=== PATIENT | female | born 1980 | race Caucasian/White ===

== ENCOUNTER 2019-12-23 15:56 | Emergency (ER) | payer OTHER ==
[~2019-12-23] VITALS: Ht 172.7 cm; Wt 65.0 kg
--- NOTE | 2019-12-23 16:14 | ED Abdominal Pain ---
General Chief Complaint: Abdominal/GI Problems Stated Complaint: ABD PAIN Source of Information: Patient Exam Limitations: No Limitations History of Present Illness Date Seen by Provider: Dec 23, 2019 Time Seen by Provider: 16:03 Initial Comments The patient presents ER by private conveyance chief complaint that she's having some umbilical hernia that is painful and unable to reduce today. She's had 3 ventral hernia repairs one in her umbilicus in the past. She's had one C- section. She says this umbilical hernia came out about a month ago and with some effort she was able to reduce it. Today she's been trying and cannot get it back in on her own. Her surgeries are done and must go to the [place] over 10 years ago. She had a bowel movement yesterday was normal, formed. Rates her pain as 10 out of 10. No nausea vomiting fever chills cough shortness of breath. No significant medical history nor does she follow with a doctor. Patient on her period presently. Allergies and Home Medications Allergies Coded Allergies: No Known Drug Allergies (Unverified , 12/23/19) Home Medications Nitrofurantoin Monohyd/M-Cryst 100 Mg Capsule, 1 TAB PO BID Prescribed by: RYLEY ONTIVEROS on 12/23/19 1650 Patient Home Medication List Home Medication List Reviewed: Yes Review of Systems Review of Systems Constitutional: No chills, No diaphoresis EENTM: No Blurred Vision, No Double Vision, No Mouth Swelling Respiratory: Denies Cough, Denies Shortness of Air Cardiovascular: Denies Chest Pain, Denies Lightheadedness Gastrointestinal: See HPI, Abdominal Pain; Denies Constipated, Denies Diarrhea, Denies Nausea Genitourinary: Denies Burning, Denies Discharge Musculoskeletal: No back pain, No joint pain Skin: No pruritus, No rash All Other Systems Reviewed Negative Unless Noted: Yes Past Pklunme-Ftkesc-Igryuv Hx Patient Social History Alcohol Use: Denies Use Recreational Drug Use: No Smoking Status: Current Everyday Smoker Type Used: Cigarettes (1 ppd) Recent Foreign Travel: No Contact w/Someone Who Travel: No Physical Exam Vital Signs Vital Signs - First Documented 12/23/19 16:16 Temp 36.6 Pulse 91 Resp 16 B/P (MAP) 134/92 (106) Pulse Ox 96 O2 Delivery Room Air Capillary Refill : Height/Weight/BMI Height: '" Weight: lbs. oz. kg; BMI Method: General Appearance: WD/WN, no apparent distress HEENT: PERRL/EOMI, pharynx normal Neck: full range of motion, normal inspection Respiratory: no respiratory distress, no accessory muscle use Cardiovascular: normal peripheral pulses, regular rate, rhythm Peripheral Pulses: 2+ Radial Pulses (R), 2+ Radial Pulses (L) Gastrointestinal: normal bowel sounds, soft, other (left of the umbilicus is a 2 cm firm, nodule with bowel sounds auscultated above it consistent with a umbilical hernia.) Neurologic/Psychiatric: alert, normal mood/affect, oriented x 3 Skin: normal color, warm/dry, other (previous scar from ventral hernia in the epigastric region as well as periumbilical) Progress/Results/Core Measures Results/Orders Lab Results Laboratory Tests Test 12/23/19 16:05 12/23/19 16:16 12/23/19 16:48 Range/Units Urine Color RED H Urine Clarity CLOUDY Urine pH 7.0 5-9 Urine Specific [place] 1.020 1.016-1.022 Urine Protein 2+ H NEGATIVE Urine Glucose (UA) NEGATIVE NEGATIVE Urine Ketones TRACE H NEGATIVE Urine Nitrite POSITIVE H NEGATIVE Urine Bilirubin 2+ H NEGATIVE Urine Urobilinogen 1.0 < = 1.0 MG/DL Urine Leukocyte Esterase 2+ H NEGATIVE Urine RBC (Auto) 3+ H NEGATIVE Urine RBC TNTC H /HPF Urine WBC 5-10 H /HPF Urine Squamous Epithelial Cells 2-5 /HPF Urine Crystals NONE /LPF Urine Bacteria NEGATIVE /HPF Urine Casts NONE /LPF Urine Mucus NEGATIVE /LPF Urine Culture Indicated YES White Blood Count 7.4 4.3-11.0 10^3/uL Red Blood Count 4.88 4.35-5.85 10^6/uL Hemoglobin 11.3 L 11.5-16.0 G/DL Hematocrit 35 35-52 % Mean Corpuscular Volume 72 L 80-99 FL Mean Corpuscular Hemoglobin 23 L 25-34 PG Mean Corpuscular Hemoglobin Concent 32 32-36 G/DL Red Cell Distribution Width 19.6 H 10.0-14.5 % Platelet Count 410 H 130-400 10^3/uL Mean Platelet Volume 8.7 7.4-10.4 FL Neutrophils (%) (Auto) 60 42-75 % Lymphocytes (%) (Auto) 31 12-44 % Monocytes (%) (Auto) 6 0-12 % Eosinophils (%) (Auto) 2 0-10 % Basophils (%) (Auto) 1 0-10 % Neutrophils # (Auto) 4.5 1.8-7.8 X 10^3 Lymphocytes # (Auto) 2.3 1.0-4.0 X 10^3 Monocytes # (Auto) 0.4 0.0-1.0 X 10^3 Eosinophils # (Auto) 0.2 0.0-0.3 10^3/uL Basophils # (Auto) 0.1 0.0-0.1 10^3/uL Sodium Level 138 135-145 MMOL/L Potassium Level 3.7 3.6-5.0 MMOL/L Chloride Level 103 98-107 MMOL/L Carbon Dioxide Level 23 21-32 MMOL/L Anion Gap 12 5-14 MMOL/L Blood Urea Nitrogen 9 7-18 MG/DL Creatinine 0.76 0.60-1.30 MG/DL Estimat Glomerular Filtration Rate > 60 BUN/Creatinine Ratio 12 Glucose Level 104 70-105 MG/DL Calcium Level 9.3 8.5-10.1 MG/DL Corrected Calcium 9.0 8.5-10.1 MG/DL Total Bilirubin 0.4 0.1-1.0 MG/DL Aspartate Amino Transf (AST/SGOT) 23 5-34 U/L Alanine Aminotransferase (ALT/SGPT) 24 0-55 U/L Alkaline Phosphatase 67 40-136 U/L Total Protein 7.5 6.4-8.2 GM/DL Albumin 4.4 3.2-4.5 GM/DL My Orders Orders - RYLEY ONTIVEROS Ua Culture If Indicated (12/23/19 16:04) Cbc With Automated Diff (12/23/19 16:09) Comprehensive Metabolic Panel (12/23/19 16:09) Fentanyl Injection (Sublimaze Injection (12/23/19 16:15) Ed Iv/Invasive Line Start (12/23/19 16:09) Urine Culture (12/23/19 16:05) Hcg,Qualitative Serum (12/23/19 16:43) Medications Given in ED Current Medications Medications Dose Ordered Sig/Norman Route Start Time Stop Time Status Last Admin Dose Admin Fentanyl Citrate 50 mcg ONCE ONCE IVP 7/27/20 16:15 12/23/19 16:16 DC 12/23/19 16:24 50 MCG Vital Signs/I&O 12/23/19 16:16 Temp 36.6 Pulse 91 Resp 16 B/P (MAP) 134/92 (106) Pulse Ox 96 O2 Delivery Room Air Progress Progress Note #1: Time: 16:12 Progress Note Patient appears to have an incarcerated umbilical hernia. Could be bowel or fat. We are going to give her some fentanyl, check some labs and then attempt to reduce it. If her unsuccessful reducing it we'll get an ultrasound to see if it looks like intestinal tissue. If so we'll refer her on to the surgeon gloria. If not we'll refer her to the surgeon outpatient. Progress Note #2: Time: 16:44 Progress Note Using bedside ultrasound we were able to witness intestine in the approximately 1 cm periumbilical hernia. There was good color Doppler flow of blood and gas in the intestinal lumen. After the 50 g of fentanyl were given we could easily reduce the hernia. Because the patient some discomfort but only took about 1 minute of direct pressure. We encouraged her to obtain a hernia belt/abdominal binder. We also encourage her to follow-up with Dr. Gibson outpatient to discuss having an elective hernia repair. Patient agrees with this plan. Return precautions were given. She did not provide enough urine for a bedside points he so we did order a serum . Departure Impression Primary Impression: Umbilical hernia Qualified Codes: K42.9 - Umbilical hernia without obstruction or gangrene Additional Impressions: Microcytic anemia UTI (urinary tract infection) Qualified Codes: N30.01 - Acute cystitis with hematuria Disposition: HOME, SELF-CARE Condition: Improved Departure-Patient Inst. Decision time for Depature: 16:45 Referrals: NO,LOCAL PHYSICIAN (PCP/Family) Primary Care Physician Patient Instructions: Good Food Sources of Iron, Urinary Tract Infections in Adults, Abdominal Hernia (DC), Anemia Caused by Low Iron Add. Discharge Instructions: Foods high in fiber as well as high in iron in your diet. Dark green, leafy, stemy, woody vegetables are high in fiber. You can also take iron tablets twice a day with food for the next 2-4 weeks. Iron tablets will cause constipation and should probably be taken along with Colace or similar stool softener twice daily. Obtain an abdominal binder and while you're active wear it to help gird your hernia. Plan to call Dr. Gibson, General Surgery and get a follow-up appointment for your umbilical hernia. If your hernia recurs and you're unable to reduce it yourself or you're unable to pass bowel movements or any other worrisome symptoms then you may return to the ER and we will help you. Drink lots of water. supervisor sunglasses the Macrobid and take one capsule twice a day for the next 7 days for your urinary tract infection. All discharge instructions reviewed with patient and/or family. Voiced understanding. Scripts Nitrofurantoin Monohyd/M-Cryst (Macrobid 100 mg Capsule) 100 Mg Capsule 1 TAB PO BID for 7 Days, #14 CAP 0 Refills Prov: RYLEY ONTIVEROS 12/23/19 Copy Copies To 1: SHANNA GIBSON DO RYLEY ONTIVEROS Dec 23, 2019 16:14
[2019-12-23] MEDS ORDERED: fentaNYL INJECTION 100 MCG/2 ML AMP IVP ONE (16:15)
[2019-12-23 16:16] VITALS: BP 134/92
[2019-12-23 16:23] LABS: BASOPHILS % (AUTO) 1 % (0-10); EOSINOPHILS % (AUTO) 2 % (0-10); HEMATOCRIT 35 % (35-52); HEMOGLOBIN 11.3 G/DL (11.5-16.0); LYMPHOCYTES # (AUTO) 2.3 X 10^3 (1.0-4.0); LYMPHOCYTES % (AUTO) 31 % (12-44); MEAN CORPUSCULAR HEMOGLOBIN 23 PG (25-34); MEAN CORPUSCULAR HGB CONC 32 G/DL (32-36); MEAN CORPUSCULAR VOLUME 72 FL (80-99); MEAN PLATELET VOLUME 8.7 FL (7.4-10.4); MONOCYTES % (AUTO) 6 % (0-12); NEUTROPHILS # (AUTO) 4.5 X 10^3 (1.8-7.8); NEUTROPHILS % (AUTO) 60 % (42-75); PLATELET COUNT 410 10^3/uL (130-400); RED CELL DISTRIBUTION WIDTH 19.6 % (10.0-14.5); WHITE BLOOD COUNT 7.4 10^3/uL (4.3-11.0)
[2019-12-23 16:24] LABS: BASOPHILS # (AUTO) 0.1 10^3/uL (0.0-0.1); EOSINOPHILS # (AUTO) 0.2 10^3/uL (0.0-0.3); MONOCYTES # (AUTO) 0.4 X 10^3 (0.0-1.0)
[2019-12-23 16:25] LABS: CLARITY,URINE CLOUDY; COLOR,URINE RED; GLUCOSE, URINE (UA) NEGATIVE (NEGATIVE); KETONES,URINE TRACE (NEGATIVE); PROTEIN,URINE 2+ (NEGATIVE)
[2019-12-23 16:27] LABS: BILIRUBIN,URINE 2+ (NEGATIVE); LEUKOCYTE ESTERASE ,URINE 2+ (NEGATIVE); NITRITE,URINE POSITIVE (NEGATIVE); RBC,URINE TNTC /HPF
[2019-12-23 16:28] LABS: BACTERIA,URINE NEGATIVE /HPF
[2019-12-23] MEDS ORDERED: NITR-65 PO (16:50)
[2019-12-23 16:52] LABS: SODIUM 138 MMOL/L (135-145)
[2019-12-23 16:53] LABS: ALANINE AMINOTRANSFERASE 24 U/L (0-55); ALBUMIN 4.4 GM/DL (3.2-4.5); ALKALINE PHOSPHATASE 67 U/L (40-136); BILIRUBIN,TOTAL 0.4 MG/DL (0.1-1.0); BUN/CREATININE RATIO 12; CALCIUM 9.3 MG/DL (8.5-10.1); CARBON DIOXIDE 23 MMOL/L (21-32); CHLORIDE 103 MMOL/L (98-107); CREATININE SERUM 0.76 MG/DL (0.60-1.30); GFR ESTIMATED > 60; GLUCOSE 104 MG/DL (70-105); POTASSIUM 3.7 MMOL/L (3.6-5.0); TOTAL PROTEIN 7.5 GM/DL (6.4-8.2)
== END 2019-12-23 17:05 | disposition home or self-care (01) ==
LOC: ER FS 15:58
DX: K42.9 Umbilical hernia without obstruction or gangrene (principal); N39.0 Urinary tract infection, site not specified; D50.9 Iron deficiency anemia, unspecified; F17.210 Nicotine dependence, cigarettes, uncomplicated
CPT/HCPCS: 36415; 80053; 81000; 84703; 85025; 87077; 87088; 87186

== ENCOUNTER 2020-01-10 11:56 | Outpatient (CLI) | payer OTHER ==
[~2020-01-10] VITALS: Ht 167 cm; Wt 54.5 kg
[~2020-01-10 11:56] MED LIST: NITR-65 PO
== END 2020-01-10 11:57 | disposition home or self-care (01) ==
LOC: PREOP 11:56
PROVIDERS: ATTEND Surgery
DX: Z01.818 Encounter for other preprocedural examination (principal)

== ENCOUNTER → 2020-01-15 | Day surgery (SDC) | payer OTHER ==
[2020-01-16 09:25] LABS: AMPHETAMINE SCREEN, URINE POSITIVE (NEGATIVE); BARBITURATE SCREEN URINE NEGATIVE (NEGATIVE); BENZODIAZEPINES SCREEN URINE NEGATIVE (NEGATIVE); CANNABINOID SCREEN, URINE NEGATIVE (NEGATIVE); COCAINE SCREEN URINE NEGATIVE (NEGATIVE); METHADONE STAT NEGATIVE (NEGATIVE); METHAMPHETAMINE SCREEN URINE S NEGATIVE (NEGATIVE); OPIATE SCREEN URINE NEGATIVE (NEGATIVE); OXYCODONE STAT NEGATIVE (NEGATIVE); PROPOXYPHENE STAT NEGATIVE (NEGATIVE); TRICYCLIC ANTIDEPRESSANTS SCRE NEGATIVE (NEGATIVE)
== END ==
LOC: SDC 06:55
PROVIDERS: ATTEND Surgery
DX: Z53.9 Procedure and treatment not carried out, unspecified reason (principal); K43.2 Incisional hernia without obstruction or gangrene
CPT/HCPCS: 80306

== ENCOUNTER 2020-01-28 05:37 | Outpatient (CLI) | payer OTHER ==
[~2020-01-28] VITALS: Ht 172.7 cm; Wt 66.4 kg
== END 2020-01-28 11:07 | disposition home or self-care (01) ==
LOC: PREOP 05:37
PROVIDERS: ATTEND Surgery
DX: Z01.818 Encounter for other preprocedural examination (principal)